=== PATIENT | female | born 1975 | race Caucasian/White ===

== ENCOUNTER 2019-09-28 20:00 | Emergency (ER) | payer MEDICAID, SELFPAY ==
[2019-09-28 20:01] VITALS: BP 123/79; PULSE 96; RESP 20; TEMP 36.7; O2SAT 99; BMI 18.7
[2019-09-28 20:11] VITALS: BP 123/87; PULSE 84; RESP 20; O2SAT 100
--- NOTE | 2019-09-28 20:33 | RAD_ITS ---
STUDY: X-RAY CHEST REASON FOR EXAM: Female, 44 years old. SOB FOR A COUPLE DAYS WITH COUGH TECHNIQUE: Portable chest. COMPARISON: 09/11/2017. FINDINGS: The lungs are clear and expanded. There is no demonstrated pleural abnormality. Normal size heart. Normal mediastinum and nicolle. Normal visualized pulmonary arteries. Normal visualized aortic arch and descending thoracic aorta. Normal visualized thoracic spine. Normal visualized ribs, clavicles, and shoulders. There is no demonstrated abnormality of the visualized soft tissue structures of the upper abdomen. RAD/Chest 1 View (Portable) IMPRESSION: Normal x-ray examination of the chest. Electronically Signed: Jess Mason MD at 22:12 EST Tel , Service support ,
--- NOTE | 2019-09-28 20:34 | EKG12_ITS ---
Test Reason : SOB Blood Pressure : / mmHG Vent. Rate : 063 BPM Atrial Rate : 063 BPM P-R Int : 136 ms QRS Dur : 086 ms QT Int : 402 ms P-R-T Axes : 076 060 067 degrees QTc Int : 411 ms Normal sinus rhythm Normal ECG Confirmed by CHACHO MCKEE, STEVIE ([id number]), story editor DANIELLE MADRIGAL ([id number]) on 10/02/2019 8:52:33 AM Referred By: SERJIO Confirmed By:STEVIE FLOR MD
[2019-09-28] MEDS: hydrOXYzine 50 MG/ML Vial IM (20:57)
[2019-09-28] MEDS: 0.9% Normal Saline 1,000 ML 999 ML IV (20:58)
[2019-09-28 21:18] LABS: Anion Gap 6 (5-15); BUN 9 mg/dL (7-18); BUN/Creat Ratio 11.1 RATIO (10-20); Calcium,Total 9.1 mg/dL (8.5-10.1); Chloride 107 mmol/L (98-107); Creatinine, Serum 0.81 mg/dL (0.55-1.02); EST Glomerular Filtration Rate 81 mL/min (>60); Est Glom Filt Rate - Afr Amer 98 mL/min (>60); Glucose 87 mg/dL (74-106); Potassium 3.6 mmol/L (3.5-5.1); Sodium Level 138 mmol/L (136-145)
[2019-09-28 21:21] LABS: Absolute Lymphocyte Count 2.08 X10^3/uL (0.83-4.51); Absolute Neutrophil Count 3.4 X10^3/uL (2.0-7.7); Basophil# 0.02 X10^3/uL; Basophil% 0.3 % (0-1); Eosinophil# 0.06 X10^3/uL; Hematocrit 39.4 % (37-47); Hemoglobin 13.2 g/dL (12.0-15.0); Lymphocyte # 2.08 X10^3/ul (4.0); Lymphocyte % 34.6 % (19-41); Mean Corp Hgb Conc 33.5 g/dL (32-36); Mean Corpuscular Hgb 28.5 pg (27.0-32.0); Mean Corpuscular Volume 85.1 fL (81-99); Mean Platelet Vol. 11.7 fl (6.2-12.0); Monocyte# 0.42 X10^3/uL; NRBC Flagged by Analyzer 0 % (0-5); Neutrophil # 3.41 X10^3/uL (2.7-7.7); Neutrophil % 56.8 % (47-70); Platelet Count 141 K/mm3 (150-450); RBC Distribution Width CV 12.7 % (11.6-14.6); RBC Distribution Width SD 38.8 fl (35.1-43.9); Red Blood Count 4.63 M/mm3 (4.2-5.4)
[2019-09-28 21:38] LABS: D-Dimer Quantitative (DVT/PE) < 0.27 FEU/ug/m (0.27-0.49)
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
[2019-09-28 23:01] VITALS: BP 105/71; PULSE 62; RESP 13; O2SAT 95
== END 2019-09-28 23:02 | disposition home or self-care (01) ==
LOC: ED 20:41
PROVIDERS: Emergency Provider Emergency Medicine
DX: F41.9 Anxiety disorder, unspecified (principal); R11.2 Nausea with vomiting, unspecified; R07.9 Chest pain, unspecified; R51 Headache; F32.9 Major depressive disorder, single episode, unspecified; Z72.0 Tobacco use; Z79.899 Other long term (current) drug therapy
CPT/HCPCS: 71045; 80048; 84484; 85025; 85379; 93005; 96360; 96361; 96372; 99283; J7030; A4216

== ENCOUNTER 2020-07-05 07:53 | Emergency (ER) | payer MEDICAID, SELFPAY ==
[2020-07-05 07:54] VITALS: BP 122/72; PULSE 77; RESP 17; TEMP 36.6; O2SAT 100; BMI 20.8
--- NOTE | 2020-07-05 08:04 | EKG12_ITS ---
Test Reason : CP Blood Pressure : / mmHG Vent. Rate : 078 BPM Atrial Rate : 078 BPM P-R Int : 134 ms QRS Dur : 082 ms QT Int : 406 ms P-R-T Axes : 076 055 054 degrees QTc Int : 462 ms Normal sinus rhythm Nonspecific ST abnormality Abnormal ECG Confirmed by CHACHO MCKEE, STEVIE ([id number]), managing editor TIERRA SANTOS ([id number]) on 07/07/2020 8:28:04 AM Referred By: Confirmed By:STEVIE FLOR MD
[2020-07-05] MEDS: 0.9% Normal Saline 1,000 ML 1000 ML IV (08:10)
--- NOTE | 2020-07-05 08:10 | RAD_ITS ---
STUDY: X-RAY CHEST REASON FOR EXAM: Female, 45 years old. Pt. States she had too much to drink the other night, now she woke up this morning and vomited, then has had chest pain TECHNIQUE: Single AP portable view of the chest. COMPARISON: Comparison is made with prior study dated 09/28/2019. FINDINGS: EKG electrodes are seen. Hyperinflation. The lungs are clear. There is no demonstrated pleural abnormality. Normal size heart. Normal mediastinum and nicolle. Normal visualized pulmonary arteries. Normal visualized aortic arch and descending thoracic aorta. There is a dextroscoliosis of the thoracic spine. Normal visualized ribs, clavicles, and shoulders. There is no demonstrated abnormality of the visualized soft tissue structures of the upper abdomen. RAD/Chest 1 View (Portable) IMPRESSION: Hyperinflation. Electronically Signed: Ezio Sanchez, at 8:27 EDT , Service support ,
[2020-07-05 08:13] LABS: Absolute Lymphocyte Count 2.18 X10^3/uL (0.83-4.51); Basophil# 0.01 X10^3/uL; Basophil% 0.1 % (0-1); Eosinophil# 0.17 X10^3/uL; Eosinophils% 2.4 % (0-5); Hematocrit 44.3 % (37-47); Hemoglobin 14.6 g/dL (12.0-15.0); Lymphocyte # 2.18 X10^3/ul (4.0); Lymphocyte % 31.3 % (19-41); Mean Corpuscular Hgb 29.4 pg (27.0-32.0); Mean Corpuscular Volume 89.3 fL (81-99); Mean Platelet Vol. 11.4 fl (6.2-12.0); Monocyte# 0.59 X10^3/uL; Monocyte% 8.5 % (0-10); NRBC Flagged by Analyzer 0 % (0-5); Neutrophil % 57.4 % (47-70); POSITIVE MORPHOLOGY YES; Platelet Count 164 K/mm3 (150-450); RBC Distribution Width CV 12.4 % (11.6-14.6); RBC Distribution Width SD 40.6 fl (35.1-43.9); Red Blood Count 4.96 M/mm3 (4.2-5.4)
[2020-07-05 08:20] LABS: Differential Indicated SCAN CRITERIA MET
[2020-07-05 08:32] LABS: AST(SGOT) 26 U/L (15-37); Alanine Aminotransfer ALT/SGPT 21 U/L (13-56); Albumin, Serum 4.2 g/dL (3.2-5.0); Alkaline Phosphatase 77 U/L (45-117); Anion Gap 3 (5-15); BUN 9 mg/dL (7-18); BUN/Creat Ratio 10.2 RATIO (10-20); Calcium,Total 9.2 mg/dL (8.5-10.1); Chloride 106 mmol/L (98-107); Creatinine, Serum 0.89 mg/dL (0.55-1.02); EST Glomerular Filtration Rate 73 mL/min (>60); Est Glom Filt Rate - Afr Amer 88 mL/min (>60); Estimated Creatinine Clearance 72.17 ml/min; Globulin 4.2 g/dL (2.2-4.2); Glucose 83 mg/dL (74-106); Lipase 96 U/L (73-393); Potassium 3.6 mmol/L (3.5-5.1); Protein, Total 8.4 g/dL (6.4-8.2); Sodium Level 137 mmol/L (136-145)
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
[2020-07-05 08:42] LABS: Platelet Estimate ADEQUATE (ADEQ); Red Cell Morphology NORM C+C NORMAL (NORM C&C)
[2020-07-05] MEDS: LORazepam 2 MG/ML Syringe 1 MG IV (08:56)
[2020-07-05 08:57] LABS: Alcohol, Blood (Medical)-Serum < 3.0 mg/dL
[2020-07-05 09:12] VITALS: BP 94/57; PULSE 58; RESP 16; O2SAT 98
== END 2020-07-05 09:28 | disposition home or self-care (01) ==
PROVIDERS: Emergency Provider Emergency Medicine; PCP Family Medicine
DX: F41.1 Generalized anxiety disorder (principal); F43.0 Acute stress reaction; R07.89 Other chest pain; R11.10 Vomiting, unspecified; F17.200 Nicotine dependence, unspecified, uncomplicated
CPT/HCPCS: 71045; 80053; 80320; 83690; 84484; 85025; 93005; 96361; 96374; 99285; J7030; A4216; G0480

== ENCOUNTER → 2020-07-29 13:34 | Outpatient (CLI) | payer MEDICAID, SELFPAY ==
[2020-07-21 09:22] VITALS: BMI 20.8
[2020-07-29 13:45] VITALS: PULSE 58; PULSE 64; PULSE 82; PULSE 83; PULSE 86; PULSE 87; PULSE 89; PULSE 96; O2SAT 97; O2SAT 98
--- NOTE | 2020-07-30 10:39 | PCM.PSN.6M ---
PSN 6 Minute Walk Test - 6 Minute Walk Test 6 Minute Walk Test: 6 Minute Walk Test PSN:6-Minute Walk Test Start: 07/29/20 13:50 Freq: Status: Active Protocol: [id number] Document 07/29/20 13:45 (Rec: 07/29/20 13:53 [id number]) 6 Minute Walk Test Date Performed 07/29/20 Time Performed 13:45 Height 5 ft 6 in Weight: 129 lb Weight in Pounds 129.[address]: Daren Kelley FIO2 (% Oxygen) 21 Assistive device used: None Pre-test Oxygen Delivery Method Room Air Pulse Ox (%) 98 Pulse Rate (60-100 beats/min) 58 L Dyspnea Gladis Scale (0-10) 0 Exertion Gladis Scale (6-20) 6 1st minute Oxygen Delivery Method Room Air Pulse Ox (%) 97 Pulse Rate (60-100 beats/min) 96 2nd minute Oxygen Delivery Method Room Air Pulse Ox (%) 97 Pulse Rate (60-100 beats/min) 82 3rd minute Oxygen Delivery Method Room Air Pulse Ox (%) 98 Pulse Rate (60-100 beats/min) 83 4th minute Oxygen Delivery Method Room Air Pulse Ox (%) 97 Pulse Rate (60-100 beats/min) 86 5th minute Oxygen Delivery Method Room Air Pulse Ox (%) 98 Pulse Rate (60-100 beats/min) 89 6th minute Oxygen Delivery Method Room Air Pulse Ox (%) 98 Pulse Rate (60-100 beats/min) 87 Post-test Oxygen Delivery Method Room Air Pulse Ox (%) 98 Pulse Rate (60-100 beats/min) 64 Dyspnea Gladis Scale (0-10) 3 Exertion Gladis Scale (6-20) 8 Full Laps Walked 24 Partial Lap, Number of Tiles Walked 0 Total Distance Walked (ft) 1416 - Interpretation Interpretation: The patient ambulated 1416 feet over the course of 6 minutes beginning on room air without assistive devices or breaks. Pretesting oxygen saturation was noted to be 98% on room air. With ambulation, the denny oxygen saturation was 97%. There was no significant exertional oxygen desaturation. - Recommendations Recommendations: There is no indication for the use of supplemental oxygen at this time.
== END ==
PROVIDERS: PCP Family Medicine; Referring Provider Internal Medicine Critical Care Medicine; Visit Provider Internal Medicine Critical Care Medicine
DX: R06.02 Shortness of breath (principal)
CPT/HCPCS: 94618

== ENCOUNTER 2020-09-30 14:51 | Emergency (ER) | payer MEDICAID, SELFPAY ==
[2020-07-21 09:22] VITALS: BMI 20.8
[2020-09-30 14:52] VITALS: BP 136/84; PULSE 89; RESP 16; TEMP 36.2; O2SAT 99; BMI 20.9
--- NOTE | 2020-09-30 15:37 | ED.VIS.GEN ---
History of Present Illness Chief Complaint: Dental Informant: Patient Onset: Days Current Severity: Mild Maximum Severity: Moderate Narrative: Patient presents secondary to dental pain. Patient states she broke her tooth off about a year ago and since that time has had intermittent infections. About 3 days ago she developed increased pain and now has swelling along the right gumline. Slight chills but no fever. She does have pain into her right ear. - Past Medical History (1) ADHD Status: Chronic (2) COPD (chronic obstructive pulmonary disease) Status: Chronic (3) Bipolar 1 disorder Status: Chronic (4) PTSD (post-traumatic stress disorder) Status: Chronic Past Medical History - Allergies and Home Meds Allergies/Adverse Reactions: Allergies No Known Allergies Allergy (Verified 07/21/20 09:18) Prior records reviewed: Yes Surgical History: noncontributory, tonsillectomy, - - Right shoulder surgery Smoking Status: Heavy Smoker (>10/day) Drugs: Marijuana - Family History Maternal Family History: Family History (Last Updated 07/21/20 @ 09:27 by Kitty Son) Other Breast cancer Pancreatic cancer Family History: Reports: No pertinent history Review of Systems General: Reports: Chills. Denies: Fever Eyes: Denies: Visual changes - bilaterally ENT: Reports: Right ear pain, - - Right-sided dental pain with facial swelling Cardiovascular: Denies: Chest pain Respiratory: Denies: Dyspnea, Cough Gastrointestinal: Denies: Abdominal pain, Nausea, Vomiting, Diarrhea Musculoskeletal: Denies: Extremity Pain Neurological: Denies: Headache Hematologic: Denies: Easy bruising, Easy bleeding Allergy: Denies: Uticaria Physical Exam Vital Signs/Narrative: Vital Signs Temp Pulse Resp BP Pulse Ox 09/30/20 14:52 97.2 F L 89 16 136/84 H 99 Inital Vital Signs reviewed: Yes General: Well nourished, Well developed Head: Normocephalic ENT: Moist mucous membranes, TM's clear, - - Right first molar is decayed and broken at the gumline. Mild surrounding gum edema. No evidence of Genesis's angina. Posterior pharynx examination is unremarkable. Slight edema noted to the right mandibular region of the face. No overlying erythema. Neck: Supple Cardiovascular: Regular rate, Regular rhythm Respiratory: No distress, CTA bilaterally Abdomen: Soft, Nontender Neurological: Alert, Oriented x3 Psychological: Normal affect Diagnostic/Tx/Re-eval - Medical Decision Making Patient be treated with Pen-Vee K and naproxen. Prescriptions were sent to the pharmacy with her along with a dose of Diflucan as she states she frequently gets yeast infections. Dental referral list was provided. ED Disposition - Plan for ED Patient: Disposition: Home or Assisted Living Diagnosis: Dental abscess Instructions: Dental Abscess Prescriptions: Fluconazole [Diflucan] 150 mg PO X1 #1 tab Transmission Status: Pending to [facility] Naproxen [Naprosyn] 500 mg PO BID PRN #14 tab PRN Reason: Pain Score 4-10 Transmission Status: Pending to [facility] Penicillin V Potassium 500 mg PO 4X/DAY #40 tab Transmission Status: Pending to [facility] Additional Instructions: Dental referral list provided.
[2020-09-30] MEDS: Penicillin Vk 250 MG Tablet 500 MG PO (15:45)
== END 2020-09-30 15:47 | disposition home or self-care (01) ==
PROVIDERS: Emergency Provider Emergency Medicine; PCP Family Medicine
DX: K04.7 Periapical abscess without sinus (principal); J44.9 Chronic obstructive pulmonary disease, unspecified; F31.9 Bipolar disorder, unspecified; F90.9 Attention-deficit hyperactivity disorder, unspecified type; F43.12 Post-traumatic stress disorder, chronic; F17.200 Nicotine dependence, unspecified, uncomplicated
CPT/HCPCS: 99283

== ENCOUNTER 2020-11-11 20:33 | Emergency (ER) | payer MEDICAID, SELFPAY ==
[2020-11-11 20:34] VITALS: BP 149/90; PULSE 97; RESP 18; TEMP 36.7; O2SAT 98; BMI 21.3
--- NOTE | 2020-11-11 20:47 | ED.DCSUM_ITS ---
- ER Visit Summary Date of Service: 11/11/20 Chief Complaint: Tooth ache, facial swelling History of Present Illness: The patient is a 45 F who presents with a toothache and facial swelling. This is been ongoing for the past 3 days. She has seen her dentist and she is due for an extraction on November 16. She woke up today and had more facial swelling. She went to [facility]. They switched her antibiotics to amoxicillin and gave her tramadol for home. She woke up again after a nap today and felt that her face was more swollen. Denies any trouble swallowing. Denies fevers. She believe that the tramadol was not working to help with her pain. Is a smoker. Physical Examination: Vital signs reviewed. HEENT exam reveals mandibular swelling on the right-hand side. No fluctuance. There is no erythema. There is no gingival abscess. She has tenderness to percussion at numbers 30 and 31. She is handling her secretions normally. Her neck is supple without lymphadenopathy. Test Results: None performed Emergency Department Course and Treatment: She has widespread dental decay and a likely dental abscess. See no gingival abscess. There is no facial abscess. There is nothing that needs to be drained at this time. I will give her a dose of Toradol here. She will continue her antibiotics and will call her dentist in the morning. Treatment Plan: [] Disposition: Discharge Impression: Dentalgia, facial swelling This note was generated with [employer] dictation software. It may contain incorrect words, spelling, and punctuation that were not noted in review of the chart prior to signing ED Disposition - Plan for ED Patient: Disposition: Home or Assisted Living Instructions: ED Dental Pain Referrals: Raoul Fry MD [Primary Care Provider] -
[2020-11-11] MEDS: Ketorolac 60 MG/2 ML Vial IM (20:52)
[2020-11-11 21:24] VITALS: BP 131/71; PULSE 78; RESP 18; O2SAT 99
== END 2020-11-11 21:25 | disposition home or self-care (01) ==
LOC: ED 21:04
PROVIDERS: Emergency Provider Emergency Medicine; PCP Family Medicine
DX: K08.89 Other specified disorders of teeth and supporting structures (principal); R22.0 Localized swelling, mass and lump, head; F17.200 Nicotine dependence, unspecified, uncomplicated
CPT/HCPCS: 96372; 99282

== ENCOUNTER 2020-11-13 09:31 | Emergency (ER) | payer MEDICAID, SELFPAY ==
[2020-11-13 09:33] VITALS: BP 131/89; PULSE 106; RESP 22; TEMP 36.3; O2SAT 100; BMI 21.3
--- NOTE | 2020-11-13 10:10 | CT_ITS ---
STUDY: CT SOFT TISSUE NECK WITH CONTRAST REASON FOR EXAM: Female, 45 years old. Right facial swelling and jaw pain, on antibiotics currently, elevated WBC, wide spread dental decay. Hx COPD. RADIATION DOSAGE (If Supplied By Facility): CTDIvol = ( 10.32 ) mGy, DLP = ( 304.22 ) mGycm TECHNIQUE: The patient was scanned in a multi-detector CT scanner. High resolution transaxial imaging was performed following intravenous administration of IV 100mL Isovue-300. Sagittal and coronal images were reconstructed. Individualized dose optimization techniques were used for this CT. COMPARISON: None. FINDINGS: Normal bilateral parotid glands. Enlargement of the musculature in the right maxillary area including an mass or muscle with stranding of the surrounding fat into the subcutaneous fat consistent with inflammation. No loculated fluid collection to suggest abscess. Normal bilateral parapharyngeal spaces. Normal bilateral carotid spaces. Normal bilateral sublingual and submandibular glands and spaces. Normal visualized nasopharynx. Normal retropharyngeal space. Normal perivertebral space. Normal visualized bilateral faucial tonsils. The visualized tongue, tongue base and oropharynx are normal. The visualized cervical lymph nodes (levels I-) are within normal size limits, and maintain normal morphology. There is no demonstrated solid or cystic mass lesion. There is no abnormal contrast enhancement. Normal epiglottis, bilateral vallecula and hypopharynx. The pre-epiglottic and paraglottic adipose spaces are normal. Normal visualized bilateral piriform sinuses, aryepiglottic folds, vocal cords, and arytenoid-cricoid articulations. Normal subglottic trachea. Normal bilateral lobes of the thyroid gland. Normal visualized pulmonary apices. Normal visualized paranasal sinuses. Normal visualized cervical spine. CT/Soft Tissue Neck WITH Contrast IMPRESSION: Right maxillary inflammation with soft tissue swelling but no abscess. Electronically Signed: Young Houston MD at 11:45 EST Tel , Service support ,
--- NOTE | 2020-11-13 10:15 | ED.VISSUMM ---
- ER Visit Summary Date of Service: 11/13/20 Chief Complaint: Dental abscess History of Present Illness: The patient is a 45 F who presents with dental abscess that has been getting worse over the past few days. Patient was seen here 2 days ago. Patient was also seen at [facility] that day and was started on amoxicillin. Patient states the pain and swelling is getting progressively worse. Patient states that today she is having difficulty swallowing. Patient denies any difficulty breathing. Patient denies any fevers or chills. Patient denies any hot or cold sensitivity. Patient states she has seen her dentist for this and she is scheduled for an extraction in 3 days. Physical Examination: Vital signs are stable. Patient is afebrile. Patient is in no acute distress. Oral mucosa is pink and moist. Oropharynx is clear. Airway is patent. There is tenderness to percussion over the right lower molars. There is no gingival edema. There is no gingival abscess. There is edema, erythema, and tenderness over the right lower jaw. It is starting to spread into the submandibular area and sublingual area. There is no trismus. Neck is supple. Trachea is midline. There is no JVD. Heart was regular rate and rhythm. Lungs are clear and equal bilaterally. Cranial nerves II through XII are intact. There are no focal motor or sensory deficits. Test Results: CBC shows a mild leukocytosis of 12.3. Comprehensive metabolic profile was essentially within normal limits. CT scan of the soft tissue neck was obtained. There is soft tissue swelling. There is no abscess. There is no evidence of Huber's angina. The sublingual submandibular spaces are normal. This was interpreted by the radiologist and reviewed by myself. Emergency Department Course and Treatment: Patient was given a dose of morphine and Unasyn here. Patient was feeling somewhat better on reevaluation. Patient was given a prescription for Augmentin. Patient was instructed to stop the amoxicillin. Patient was instructed to follow-up with her dentist as scheduled. Patient understood and was agreeable with the plan. All questions were answered. Disposition: Discharge home Impression: 1. Dental abscess This note was generated with [employer] software. It may contain incorrect words, spelling, and punctuation that were not noted in review of the chart prior to signing ED Disposition - Plan for ED Patient: Disposition: Home or Assisted Living Diagnosis: Dental abscess Instructions: ED Dental Abscess Prescriptions: Amox/Clavulanate Tablet [Augmentin Tablet] 875 mg PO Q12H #20 tab Transmission Status: Pending to [facility] Referrals: Raoul Fry MD [Primary Care Provider] - 3-5 Days
[2020-11-13] MEDS: 0.9% Normal Saline 1,000 ML 1000 ML IV (10:30)
[2020-11-13] MEDS: Morphine 4 MG/ML Syringe IV (10:30)
[2020-11-13 10:51] LABS: Absolute Lymphocyte Count 0.86 X10^3/uL (0.83-4.51); Absolute Neutrophil Count 10.5 X10^3/uL (2.0-7.7); Basophil# 0.02 X10^3/uL; Basophil% 0.2 % (0-1); Eosinophil# 0.04 X10^3/uL; Eosinophils% 0.3 % (0-5); Hematocrit 39.2 % (37-47); Hemoglobin 12.9 g/dL (12.0-15.0); Lymphocyte # 0.86 X10^3/ul (4.0); Mean Corp Hgb Conc 32.9 g/dL (32-36); Mean Corpuscular Hgb 29.3 pg (27.0-32.0); Mean Corpuscular Volume 88.9 fL (81-99); Mean Platelet Vol. 12.2 fl (6.2-12.0); Monocyte# 0.87 X10^3/uL; Monocyte% 7.1 % (0-10); NRBC Flagged by Analyzer 0 % (0-5); Neutrophil # 10.45 X10^3/uL (2.7-7.7); Neutrophil % 84.8 % (47-70); Platelet Count 142 K/mm3 (150-450); RBC Distribution Width CV 12.6 % (11.6-14.6); RBC Distribution Width SD 41.2 fl (35.1-43.9); Red Blood Count 4.41 M/mm3 (4.2-5.4); White Blood Count 12.3 K/mm3 (4.4-11.0)
[2020-11-13 11:01] LABS: ALB/GLOB Ratio 0.9 RATIO (0.9-2.4); AST(SGOT) 30 U/L (15-37); Alanine Aminotransfer ALT/SGPT 31 U/L (13-56); Albumin, Serum 3.8 g/dL (3.2-5.0); Alkaline Phosphatase 73 U/L (45-117); Anion Gap 4 (5-15); BUN 7 mg/dL (7-18); BUN/Creat Ratio 9.3 RATIO (10-20); Calcium,Total 9.5 mg/dL (8.5-10.1); Chloride 101 mmol/L (98-107); Creatinine, Serum 0.75 mg/dL (0.55-1.02); EST Glomerular Filtration Rate 88 mL/min (>60); Est Glom Filt Rate - Afr Amer 107 mL/min (>60); Estimated Creatinine Clearance 86.81 ml/min; Globulin 4.1 g/dL (2.2-4.2); Glucose 90 mg/dL (74-106); Potassium 3.7 mmol/L (3.5-5.1); Protein, Total 7.9 g/dL (6.4-8.2); Sodium Level 132 mmol/L (136-145)
[2020-11-13 12:16] VITALS: BP 141/76; PULSE 82; RESP 16; O2SAT 99
--- NOTE | 2020-11-13 12:16 | ED.RN ---
IV DC'ED, CATHETER INTACT, SMALL GAUZE DRESSING PLACED. DISCHARGE INSTRUCTIONS GIVEN TO AND REVIEWED WITH PATIENT, PATIENT DENIES QUESTIONS OR CONCERNS AND VOICES UNDERSTANDING OF DISCHARGE INSTRUCTIONS. PT AMBULATES OUT OF ROOM WITHOUT DIFFICULTY.
== END 2020-11-13 12:17 | disposition home or self-care (01) ==
PROVIDERS: Emergency Provider Emergency Medicine; PCP Family Medicine
DX: K04.7 Periapical abscess without sinus (principal); J44.9 Chronic obstructive pulmonary disease, unspecified; Z72.0 Tobacco use
CPT/HCPCS: 70491; 80053; 85025; 96365; 96366; 96375; 99283; Q9967; J0295

== ENCOUNTER 2021-10-05 21:45 | Emergency (ER) | payer MEDICAID, SELFPAY ==
[2021-10-05 21:45] VITALS: BP 137/83; PULSE 79; RESP 18; TEMP 36.4; O2SAT 100; BMI 19.3
--- NOTE | 2021-10-05 22:00 | EKG12_ITS ---
Test Reason : CP Blood Pressure : / mmHG Vent. Rate : 067 BPM Atrial Rate : 067 BPM P-R Int : 134 ms QRS Dur : 090 ms QT Int : 436 ms P-R-T Axes : 074 077 082 degrees QTc Int : 460 ms Normal sinus rhythm Normal ECG Confirmed by CHACHO MCKEE, STEVIE ([id number]), photo editor CHRISTIE CHEATHAM ([id number]) on 10/11/2021 10:30:57 AM Referred By: MATHIEU Confirmed By:STEVIE FLOR MD
--- NOTE | 2021-10-05 22:08 | RAD_ITS ---
EXAM: XR CHEST, 1 VIEW CLINICAL INDICATION: trauma TECHNIQUE: Frontal view of the chest. This report was created using [employer] report generation technology. COMPARISON: 07/05/2020 exam. FINDINGS: LUNGS AND PLEURAL SPACES: Diffuse emphysema, centrilobular. No pneumothorax. No effusion. HEART: Unremarkable. Cardiac silhouette not enlarged. MEDIASTINUM: Central airways and mediastinal contour are unremarkable. BONES/JOINTS: No suspicious lytic or sclerotic lesions of bone. SOFT TISSUES: Unremarkable. RAD/Chest 1 View (Portable) IMPRESSION: No acute disease. Electronically Signed: Sandoval Doss MD at 22:26 EST Tel , Service support ,
--- NOTE | 2021-10-05 22:48 | EDS_ITS ---
HPI History of Present Illness Chief Complaint: Chest Pain Narrative Narrative: Patient is a 46-year-old female who states that she has a past medical history of broken heart syndrome. 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 She states in doing so he struck her chest wall and she also had to twist and try to throw him into a chair. She states since that time she has had increasing chest pain and is worried because of her history of broken heart syndrome. She also is concerned that she may have broken a rib and secondary to this presents for evaluation. [facility] Medical History Bipolar 1 disorder PTSD (post-traumatic stress disorder) Home Medications estradiol 1 ea TD [facility] 04/01/15 [History Last Taken 07/04/20] clonazepam 0.5 mg tablet 0.5 mg PO BID 07/21/20 [History Last Taken Unknown] olanzapine 5 mg tablet 10 mg PO QHS 07/21/20 [History Last Taken Unknown] clonazepam 1 mg PO QHS 09/30/20 [History Last Taken Unknown] dextroamphetamine-amphetamine 20 mg PO TID 09/30/20 [History Last Taken Unknown] fluconazole 150 mg PO X1 #1 tab 09/30/20 [Rx Last Taken Unknown] naproxen 500 mg PO BID PRN #14 tab 09/30/20 [Rx Last Taken Unknown] penicillin V potassium 500 mg PO 4X/DAY #40 tab 09/30/20 [Rx Last Taken Unknown] amoxicillin-pot clavulanate 875 mg PO Q12H #20 tab 11/13/20 [Rx Last Taken Unknown] methocarbamol 1,000 mg PO Q6H PRN 7 Days #56 tab 10/05/21 [Rx Last Taken Unknown] oxycodone-acetaminophen [Percocet] 1 tab PO Q6H PRN 3 Days #12 tab 10/05/21 [Rx Last Taken Unknown] Allergy/AdvReac Type Severity Reaction Status Date / Time No Known Allergies Allergy Verified 10/05/21 21:48 Family History (Updated 07/21/20 @ 09:27 by Kitty Son) Other Breast cancer Pancreatic cancer Surgical History (Updated 09/30/20 @ 15:[address] Danni Amaro MD) s/p ankle surgery s/p cyst removal S/P hernia repair S/P hysterectomy S/P laparoscopic surgery s/p right shoulder surgery S/P tonsillectomy S/P wisdom tooth extraction Social History (Updated 07/21/20 @ 09:[address] Daren Kelley, DO) Smoking Status: Current every day smoker substance use type: marijuana ROS ROS ED Constitutional Constitutional ED: Denies chills or fever(s) ENT ENT ED: Denies sore throat Cardiovascular Cardiovascular: Reports chest pain Respiratory/Chest Respiratory/Chest: Denies cough or dyspnea Gastrointestinal Gastrointestinal: Denies abdominal pain, diarrhea, nausea or vomiting Genitourinary Genitourinary ED: Denies dysuria Musculoskeletal Musculoskeletal: Denies myalgias Integumentary Denies Abrasions or rash Neurologic Neurologic: Denies headache(s) Hematologic/Lymphatic Hematologic/Lymphatic: Denies easy bleeding or easy bruising EXAM Physical Exam Const Vital Signs: 10/05/21 21:45 Temperature 97.6 F L Temperature Source Temporal Pulse Rate 79 Respiratory Rate 18 Blood Pressure 137/83 H Blood Pressure Mean 101 Pulse Ox 100 Oxygen Delivery Method Room Air Positive well nourished and well developed General Appearance ED: well developed HEENT Reports moist mucous membranes Eyes PERRL and EOMs intact bilaterally Neck supple Chest Wall Chest Narrative: Patient has reproducible anterior chest wall pain with palpation but no obvious bony deformity or crepitance Resp normal respiratory effort and clear to auscultation bilaterally Cardio regular rate and regular rhythm Rate: other Other Details: Radial pulses are plus 2 out of 4 bilaterally are equal and symmetric GI normal to inspection, nondistended, normoactive bowel sounds, non-tender, non- distended and no masses Auscultation: normoactive bowel sounds Palpation: soft Extremity normal to inspection Extremity Narrative: No asymmetric edema no pitting edema negative Homans' sign bilaterally Neuro oriented x3 and CN's II-XII intact bilaterally Sensorium / Orientation: alert Motor Exam: strength 5/5 throughout Psych Psych Narrative: Patient has a flat affect Skin no rashes or lesions noted Skin Narrative: No abrasions or ecchymosis noted MDM MDM MDM Narrative Medical decision making narrative: Patient presented to the ER with stable vitals. Her report of chest pain came after a mechanical injury indicating that this is chest wall pain/rib contusion. Therefore I felt no need for work-up other than EKG and chest x-ray. EKG showed normal sinus rhythm without changes to suggest pericarditis or [place] arteritis. Chest x-ray revealed no acute pneumothorax or rib fracture or pneumonia. Therefore at this time as the symptoms and history and physical exam all point to chest wall contusion and intercostal strain as a cause of her symptoms there is no need for further work- up and patient can be discharged home Radiography Diagnostic Testing: Clinical Impression(s) from Imaging Studies Chest X-Ray 10/05/21 22:08 IMPRESSION: No acute disease. Electronically Signed: Sandoval Doss MD at 22:26 EST Tel , Service support , Discharge Plan Triage Chief Complaint: Chest Pain ED Provider: Sandoval Rouse Dx/Rx/DC Orders Clinical Impression: Acute chest wall pain Instructions: ED Chest Wall Contusion, ED Strain Chest Wall Prescriptions: New oxycodone-acetaminophen [Percocet] 5-325 mg tablet 1 tab PO Q6H PRN (Reason: pain) 3 Days Qty: 12 RF: 0 methocarbamol 500 mg tablet 1,000 mg PO Q6H PRN (Reason: Muscle pain/spasm) 7 Days Qty: 56 RF: 0 No Action clonazepam [Klonopin] 0.5 mg tablet 0.5 mg PO BID RF: 0 olanzapine 5 mg tablet 10 mg PO QHS RF: 0 estradiol 1 EACH patch semiweekly 1 ea TD [facility] RF: 0 clonazepam 1 MG tablet 1 mg PO QHS RF: 0 dextroamphetamine-amphetamine 20 MG tablet 20 mg PO TID RF: 0 naproxen 500 MG tablet 500 mg PO BID PRN (Reason: Pain Score 4-10) Qty: 14 RF: 0 penicillin V potassium 500 MG tablet 500 mg PO 4X/DAY Qty: 40 RF: 0 fluconazole 150 MG tablet 150 mg PO X1 Qty: 1 RF: 0 amoxicillin-pot clavulanate 875 MG tablet 875 mg PO Q12H Qty: 20 RF: 0 Primary Care Provider: Raoul Fry Referrals: Raoul Fry MD [Primary Care Provider] - Disposition Disposition: Home, Self Care
[2021-10-05 23:00] VITALS: RESP 16
== END 2021-10-05 23:20 | disposition home or self-care (01) ==
PROVIDERS: Emergency Provider Emergency Medicine; PCP Family Medicine
DX: S20.219A Contusion of unspecified front wall of thorax, initial encounter (principal); R07.89 Other chest pain; F43.10 Post-traumatic stress disorder, unspecified; F31.9 Bipolar disorder, unspecified; Z79.899 Other long term (current) drug therapy; F17.200 Nicotine dependence, unspecified, uncomplicated; W50.0XXA Accidental hit or strike by another person, initial encounter; Y93.F9 Activity, other caregiving; Y92.9 Unspecified place or not applicable; Y99.0 Civilian activity done for income or pay
CPT/HCPCS: 71045; 93005; 99282

== ENCOUNTER 2022-06-05 21:10 | Emergency (ER) | payer MEDICAID, SELFPAY ==
[2022-06-05 21:11] VITALS: BP 144/78; PULSE 85; RESP 14; TEMP 36.9; O2SAT 98; BMI 20.9
--- NOTE | 2022-06-05 21:29 | EKG12_ITS ---
Test Reason : CP Blood Pressure : / mmHG Vent. Rate : 069 BPM Atrial Rate : 069 BPM P-R Int : 138 ms QRS Dur : 086 ms QT Int : 396 ms P-R-T Axes : 064 054 060 degrees QTc Int : 424 ms Normal sinus rhythm Low voltage QRS (Limb Leads) Confirmed by BRYSON MCKEE, ANGELICA ([id number]), film editor supervisor TIERRA SANTOS ([id number]) on 06/06/2022 8:23:02 AM Referred By: Confirmed By:ANGELICA MASSEY MD
--- NOTE | 2022-06-05 21:30 | EDS_ITS ---
HPI History of Present Illness Chief Complaint: Chest Pain Narrative Narrative: Patient presents because she has had chest pain for years. She has chest tightness. She has past medical history of bipolar disorder, PTSD, COPD, and ADHD. She is a smoker. She went and saw her primary care physician today, and he performed an EKG. He told her that she may have had a heart attack since her last EKG a few months ago. He states that they were EKG changes in the front. She states that she relates her chest pain and shortness of breath to anxiety and stress regarding her brother's murder. She denies any leg swelling or exacerbating or alleviating symptoms, but states she got scared because of the chest pain that she has been having for months to years. She states she had a chest x-ray performed today that showed she might have pneumonia. This was done as an outpatient. She states her primary care physician told her she needed to follow-up with a precision lens generator, and she went to make an appointment and they told her that it would not be until October. She also states that in the past she has had echocardiogram performed which showed that she had regurgitation but she does not know of which valve. She states that she does not have a precision lens generator currently. She presents mainly because of the EKG changes and that she was told that she had a heart attack. [facility] Medical History ADHD Bipolar 1 disorder COPD (chronic obstructive pulmonary disease) PTSD (post-traumatic stress disorder) Home Medications estradiol 0.025 mg/24 hr semiweekly transdermal patch 1 ea TD [facility] 04/01/15 [History Last Taken 07/04/20] clonazepam 0.5 mg tablet (Klonopin) 0.5 mg PO BID 07/21/20 [History Last Taken Unknown] olanzapine 5 mg tablet (Zyprexa) 20 mg PO QHS 07/21/20 [History Last Taken Unknown] clonazepam 1 mg tablet 1 mg PO QHS 09/30/20 [History Last Taken Unknown] dextroamphetamine-amphetamine 20 mg tablet (Adderall) 20 mg PO TID 09/30/20 [History Last Taken Unknown] Allergy/AdvReac Type Severity Reaction Status Date / Time No Known Allergies Allergy Verified 06/05/22 21:15 Family History Other Breast cancer Pancreatic cancer Surgical History s/p ankle surgery s/p cyst removal S/P hernia repair S/P hysterectomy S/P laparoscopic surgery s/p right shoulder surgery S/P tonsillectomy S/P wisdom tooth extraction Social History Smoking Status: Current every day smoker tobacco type: cigarettes substance use type: marijuana ROS ROS ED ROS Narrative Constitutional: No fever, no chills. HEENT: No sore throat. No neck pain. No loss of vision. No rhinorrhea. Cardiovascular: Positive chronic chest pain. No palpitations. No pedal edema. Respiratory: Occasional cough, intermittent shortness of breath. Abdominal: No abdominal pain. No nausea. No vomiting. Genitourinary: No dysuria. No hematuria. Musculoskeletal: No myalgias. No arthralgias. Neurologic: No headaches. No dizziness. No lightheadedness. Skin: No rash. No change in color. Psychiatric: No depression. No anxiety. EXAM Physical Exam Narrative Exam Narrative: Afebrile. Vital signs noted. HEENT: Normocephalic. Atraumatic. PERRL, EOMI. Neck soft and supple. No point tenderness or step off. Cardiovascular: Regular rate and rhythm. No murmurs, rubs, or gallops appreciated. Respiratory: No tachypnea. Lungs clear to auscultation bilaterally. Gastrointestinal: Abdomen soft, nontender, with normoactive bowel sounds. No rebound or guarding. Neurological: Awake. Alert. Nonfocal, nonlateralizing. Skin: No rash. Normal color. No pallor. Musculoskeletal: No pedal edema. Full range of motion extremities. Const Vital Signs: 06/05/22 21:11 06/05/22 21:21 06/05/22 21:35 Temperature 98.4 F Temperature Source Temporal Pulse Rate 85 Respiratory Rate 14 Respiratory Effort Normal Non-Labored Blood Pressure 144/78 H Blood Pressure Mean 100 Pulse Ox 98 99 Oxygen Delivery Method Room Air Room Air Heart Score History: Slightly/Non-Suspicious ECG: Normal Age: >45 - <65 years Risk Factors: 1 or 2 Risk Factors Score: 2 MDM MDM MDM Narrative Medical decision making narrative: Chest pain work-up was pursued. EKG was obtained and interpreted by myself demonstrates normal sinus rhythm at 69 bpm without ectopy or acute ST changes. No STEMI. CBC is grossly normal with a normal white count of 5.3, normal hemoglobin of 12.0 with hematocrit 37.0. Platelet count slightly low at 132 which is chronic. BMP is grossly normal. Initial high-sensitivity troponin 4. Chest x-ray interpreted by myself shows no acute process. She did show me the radiology read of her chest x-ray that was performed today, and it could have been a summation of shadows in the right upper lobe that was a possible pneumo shahram. However, she is shows no clinical signs of pneumonia, no fever or cough. I do not feel antibiotics are indicated. She states that she was worried because she has this history of regurgitation and states her shortness of breath may be secondary to that, but she has no evidence of pedal edema and her pulse ox is 99% on room air without evidence of hypoxia. Patient was reassured. At this point in time, her 2-hour troponin is still pending. She will be signed out to the oncoming physician, Dr. Sandoval Rouse, to check the delta troponin and as long as it is negative, discharge her to follow-up with her primary care physician. Disposition is pending delta troponin. She is in stable condition. Lab Data Attestation: I reviewed the patient's lab results. Labs: Laboratory Results - last 24 hr 06/05/22 06/05/22 21:40 21:40 WBC 5.3 RBC 4.10 L Hgb 12.0 Hct 37.0 MCV 90.2 MCH 29.3 MCHC 32.4 RDW Std Deviation 42.6 RDW Coeff of Hillary 12.9 Plt Count 132 L MPV 11.7 Immature Gran % (Auto) 0.400 Neut % (Auto) 51.7 Lymph % (Auto) 37.2 Clinch % (Auto) 8.6 Eos % (Auto) 1.7 Baso % (Auto) 0.4 Absolute Neuts (auto) 2.8 Absolute Lymphs (auto) 1.98 Nucleated RBC % 0 Sodium 138 Potassium 3.6 Chloride 107 Carbon Dioxide 27.0 Anion Gap 4 L BUN 9 Creatinine 0.88 Estim Creat Clear Calc 71.99 Est GFR (MDRD) Af Amer 88 Est GFR (MDRD) Non-Af 73 BUN/Creatinine Ratio 10.3 Glucose 97 Calcium 8.8 Troponin I High Sens 4 Radiography Diagnostic Testing: Clinical Impression(s) from Imaging Studies Chest X-Ray 06/05/22 21:50 IMPRESSION: No acute cardiopulmonary disease. Electronically Signed: Keyur Vale MD at 22:22 EDT , Discharge Plan Triage Chief Complaint: Chest Pain ED Provider: Fredis Lazcano Dx/Rx/DC Orders Clinical Impression: Chest pain, Shortness of breath, Thrombocytopenia Instructions: Thrombocytopenia, ED Chest Pain, Uncertain Cause, ED Dyspnea Prescriptions: No Action clonazepam [Klonopin] 0.5 mg tablet 0.5 mg PO BID olanzapine [Zyprexa] 5 mg tablet 20 mg PO QHS estradiol 1 EACH patch semiweekly 1 ea TD [facility] Label Comments: APPLY PACTCH 2X WEEK. clonazepam 1 MG tablet 1 mg PO QHS dextroamphetamine-amphetamine [Adderall] 20 MG tablet 20 mg PO TID Primary Care Provider: Steve Medina Referrals: Raoul Fry MD [Non-Staff] - 3-5 Days if not improving Disposition Disposition: Home, Self Care
[2022-06-05 21:35] VITALS: O2SAT 99
[2022-06-05] MEDS: Aspirin 81 MG TAB.CHEW 324 MG PO (21:39)
[2022-06-05 21:49] LABS: Absolute Lymphocyte Count 1.98 X10^3/uL (0.83-4.51); Absolute Neutrophil Count 2.8 X10^3/uL (2.0-7.7); Basophil# 0.02 X10^3/uL; Basophil% 0.4 % (0-1); Eosinophil# 0.09 X10^3/uL; Eosinophils% 1.7 % (0-5); Lymphocyte # 1.98 X10^3/ul (0.83-4.51); Lymphocyte % 37.2 % (19-41); Mean Corp Hgb Conc 32.4 g/dL (32-36); Mean Corpuscular Hgb 29.3 pg (27.0-32.0); Mean Corpuscular Volume 90.2 fL (81-99); Mean Platelet Vol. 11.7 fl (6.2-12.0); Monocyte# 0.46 X10^3/uL; Monocyte% 8.6 % (0-10); NRBC Flagged by Analyzer 0 % (0-5); Neutrophil # 2.75 X10^3/uL (2.7-7.7); Neutrophil % 51.7 % (47-70); Platelet Count 132 K/mm3 (150-450); RBC Distribution Width CV 12.9 % (11.6-14.6); RBC Distribution Width SD 42.6 fl (35.1-43.9); White Blood Count 5.3 K/mm3 (4.4-11.0)
--- NOTE | 2022-06-05 21:50 | RAD_ITS ---
INDICATION: chest pain EXAMINATION/TECHNIQUE: X-RAY - XR Chest 1 View COMPARISON: 10/05/2021 FINDINGS: LINES/DEVICES: None. LUNGS: Mild biapical pleural/parenchymal scarring again seen. No consolidation, edema or effusion. No pneumothorax. MEDIASTINUM AND CARDIOVASCULAR STRUCTURES: Cardiac silhouette not enlarged. Central airways and mediastinal contour are unremarkable. BONES AND SOFT TISSUES: Unremarkable. RAD/Chest 1 View (Portable) IMPRESSION: No acute cardiopulmonary disease. Electronically Signed: Keyur Vale MD at 22:22 EDT ,
[2022-06-05 22:08] LABS: Anion Gap 4 (5-15); BUN 9 mg/dL (7-18); BUN/Creat Ratio 10.3 RATIO (10-20); Calcium,Total 8.8 mg/dL (8.5-10.1); Chloride 107 mmol/L (98-107); Creatinine, Serum 0.88 mg/dL (0.55-1.02); EST Glomerular Filtration Rate 73 mL/min (>60); Est Glom Filt Rate - Afr Amer 88 mL/min (>60); Estimated Creatinine Clearance 71.99 ml/min; Glucose 97 mg/dL (74-106); Potassium 3.6 mmol/L (3.5-5.1); Sodium Level 138 mmol/L (136-145); Troponin-I HS (w/2H Reflex) 4 pg/mL (3.0-54.0)
[2022-06-05 23:42] VITALS: PULSE 68; RESP 18; O2SAT 97
[2022-06-05 23:45] LABS: Reflex Troponin-HS? (from REC) Y
[2022-06-06 00:02] LABS: Troponin-I HS 5 pg/mL (3.0-54.0)
[2022-06-06 00:29] VITALS: BP 124/65; PULSE 73; RESP 18; O2SAT 94
== END 2022-06-06 00:30 | disposition home or self-care (01) ==
PROVIDERS: Emergency Provider Emergency Medicine; PCP Family Medicine; Visit Provider Emergency Medicine
DX: R07.89 Other chest pain (principal); J44.9 Chronic obstructive pulmonary disease, unspecified; F31.9 Bipolar disorder, unspecified; D69.6 Thrombocytopenia, unspecified; F17.210 Nicotine dependence, cigarettes, uncomplicated; F43.10 Post-traumatic stress disorder, unspecified; F90.9 Attention-deficit hyperactivity disorder, unspecified type; Z79.899 Other long term (current) drug therapy; R06.02 Shortness of breath
CPT/HCPCS: 71045; 80048; 84484; 85025; 93005; 99285; A4216

== ENCOUNTER 2023-09-28 02:09 | Emergency (ER) | payer MEDICAID, SELFPAY ==
[2023-09-28 02:10] VITALS: BP 142/78; PULSE 96; RESP 18; TEMP 36; O2SAT 100; BMI 21.8
--- NOTE | 2023-09-28 02:24 | ED.VIS.FALL ---
HPI HPI - Fall History of Present Illness Chief Complaint: Fall Informant: patient Occured/Mechanism Occurred: Yesterday Mechanism/Context: Yes same level fall and Yes trip Usually ambulates: Without assistance Pain/Injury Location: Left ribs Pain Location: chest Quality of Pain: Stabbing and - (Pressure) Worsened by: Movement, lifting Relieved by: Remaining still Associated Symptoms Associated Symptoms: Negative for Parasthesias, Weakness, Loss of function, Inability to ambulate, Loss of consciousness or Amnesia Narrative Narrative: Patient presents with left rib pain that began after a fall yesterday. Patient states she slipped and fell and landed on a trash can. Patient states her pain is over the left ribs. Patient describes it as a constant pressure but stabbing with certain movements. Patient denies any shortness of breath. Patient denies any nausea or vomiting. Patient denies any head injury or loss of consciousness. Patient denies any other injuries. Patient states her pain is worse with any lifting or movement. Patient states it is better when she remains still. [facility] Medical History ADHD Bipolar 1 disorder COPD (chronic obstructive pulmonary disease) PTSD (post-traumatic stress disorder) Home Medications estradiol 0.025 mg/24 hr semiweekly transdermal patch 1 ea TD [facility] 04/01/15 [History Last Taken 07/04/20] clonazepam 0.5 mg tablet (Klonopin) 0.5 mg PO BID 07/21/20 [History Last Taken Unknown] olanzapine 5 mg tablet (Zyprexa) 20 mg PO QHS 07/21/20 [History Last Taken Unknown] clonazepam 1 mg tablet 1 mg PO QHS 09/30/20 [History Last Taken Unknown] dextroamphetamine-amphetamine 20 mg tablet (Adderall) 20 mg PO TID 09/30/20 [History Last Taken Unknown] Allergy/AdvReac Type Severity Reaction Status Date / Time No Known Allergies Allergy Verified 09/28/23 02:13 Family History Other Breast cancer Pancreatic cancer Surgical History s/p ankle surgery s/p cyst removal S/P hernia repair S/P hysterectomy S/P laparoscopic surgery s/p right shoulder surgery S/P tonsillectomy S/P wisdom tooth extraction Social History Smoking Status: Current every day smoker tobacco type: cigarettes substance use type: marijuana ROS ROS ED Constitutional Constitutional ED: Denies chills or fever(s) Eyes Eyes: Denies blurry vision or change in vision ENT ENT ED: Denies rhinorrhea or sore throat Cardiovascular Cardiovascular: Reports chest pain; Denies palpitations Respiratory/Chest Respiratory/Chest: Denies cough or dyspnea Gastrointestinal Gastrointestinal: Denies nausea or vomiting Genitourinary Genitourinary ED: Denies dysuria or hematuria Musculoskeletal Musculoskeletal: Denies back pain or neck pain Integumentary Denies abscess or rash Neurologic Neurologic: Denies headache(s) or weakness Allergic/Immunologic Allergic/Immunologic ED: Denies mouth swelling or urticaria EXAM Physical Exam Const Vital Signs: 09/28/23 02:10 Temperature 96.8 F L Temperature Source Temporal Pulse Rate 96 Respiratory Rate 18 Blood Pressure 142/78 H Blood Pressure Mean 99 Pulse Ox 100 Oxygen Delivery Method Room Air Positive well nourished and well developed General Appearance ED: well developed and NAD HEENT Reports normocephalic atraumatic Neck full ROM and supple Chest Wall Chest Narrative: There is tenderness over the lateral left fourth, fifth, sixth, and seventh ribs. There is no bony crepitance or step-off noted. There is no subcutaneous emphysema noted. Resp normal respiratory effort and clear to auscultation bilaterally Cardio regular rate and regular rhythm GI non-tender and non-distended Palpation: soft Neuro oriented x3, CN's II-XII intact bilaterally, moves all extremities, no focal motor deficits and no sensory deficits noted Sensorium / Orientation: alert Motor Exam: strength 5/5 throughout Psych mental status grossly normal MDM MDM MDM Narrative Medical decision making narrative: Differential diagnosis includes rib fracture, pneumothorax, and chest wall contusion. X-rays of the left ribs and chest will be obtained to assess for rib fracture and pneumothorax. Radiography Diagnostic Testing: Clinical Impression(s) from Imaging Studies Ribs w/Chest X-Ray 09/28/23 02:40 IMPRESSION: No evidence of displaced rib fracture. Electronically Signed: Sunny Dupree MD at 3:19 EST , X-rays of the left ribs were obtained. There are 5 views. On my independent interpretation, there is no acute fracture. There is no pneumothorax. Radiologist also interpreted the x-rays and agrees. Discharge Plan Triage Chief Complaint: Fall ED Provider: Rufus Cannon Dx/Rx/DC Orders Clinical Impression: Contusion of rib on left side, Fall Instructions: ED Bruise, Rib Prescriptions: No Action clonazepam [Klonopin] 0.5 mg tablet 0.5 mg PO BID olanzapine [Zyprexa] 5 mg tablet 20 mg PO QHS estradiol 1 EACH patch semiweekly 1 ea TD [facility] Patient Comments: APPLY PACTCH 2X WEEK. clonazepam 1 MG tablet 1 mg PO QHS dextroamphetamine-amphetamine [Adderall] 20 MG tablet 20 mg PO TID Primary Care Provider: Steve Medina Referrals: Steve Medina MD [Primary Care Provider] - 5-7 Days Disposition Disposition: Home, Self Care
--- NOTE | 2023-09-28 02:40 | RAD_ITS ---
INDICATION: Trauma EXAMINATION/TECHNIQUE: X-RAY - XR Ribs Unilateral W/ PA Chest Min 3 Views COMPARISON: No relevant prior comparison study available FINDINGS: SOFT TISSUES: No soft tissue swelling or gas. BONES: No displaced fracture. No sclerotic or destructive changes observed. VISUALIZED LUNGS: Clear. No pneumothorax. RAD/Ribs Uni Min 3V w/PA Chest IMPRESSION: No evidence of displaced rib fracture. Electronically Signed: Sunny Dupree MD at 3:19 EST ,
[2023-09-28 03:31] VITALS: PULSE 93; RESP 18; O2SAT 100
== END 2023-09-28 03:32 | disposition home or self-care (01) ==
PROVIDERS: Emergency Provider Emergency Medicine; PCP Family Medicine; Visit Provider Emergency Medicine
DX: S20.212A Contusion of left front wall of thorax, initial encounter (principal); W01.198A Fall on same level from slipping, tripping and stumbling with subsequent striking against other object, initial encounter; F17.210 Nicotine dependence, cigarettes, uncomplicated
CPT/HCPCS: 71101; 99282

== ENCOUNTER 2024-02-07 14:39 | Emergency (ER) | payer MEDICAID, SELFPAY ==
[2024-02-07 14:40] VITALS: BP 143/91; PULSE 69; RESP 16; TEMP 36.3; O2SAT 100; BMI 20.2
--- NOTE | 2024-02-07 15:23 | EX.ED.DYSGE1 ---
HPI History of Present Illness Chief Complaint: Complaint Informant: patient Narrative Narrative: Increasing dysuria since yesterday. Mild upper back pain today. History of UTI 2 years ago. States typically treated with Bactrim and Pyridium. No nausea or vomiting. No abdominal pain. Prior similar symptoms: Yes PFSH PFSH Medical History ADHD Bipolar 1 disorder COPD (chronic obstructive pulmonary disease) PTSD (post-traumatic stress disorder) Home Medications estradiol 0.025 mg/24 hr semiweekly transdermal patch 1 ea TD [facility] 04/01/15 [History Last Taken 07/04/20] clonazepam 0.5 mg tablet (Klonopin) 0.5 mg PO BID 07/21/20 [History Last Taken Unknown] olanzapine 5 mg tablet (Zyprexa) 20 mg PO QHS 07/21/20 [History Last Taken Unknown] clonazepam 1 mg tablet 1 mg PO QHS 09/30/20 [History Last Taken Unknown] dextroamphetamine-amphetamine 20 mg tablet (Adderall) 20 mg PO TID 09/30/20 [History Last Taken Unknown] phenazopyridine 200 mg tablet (Pyridium) 200 mg PO TID #10 tabs 02/07/24 [Rx Last Taken Unknown] sulfamethoxazole 800 mg-trimethoprim 160 mg tablet 1 tab PO BID #14 TABLETS 02/07/24 [Rx Last Taken Unknown] Allergy/AdvReac Type Severity Reaction Status Date / Time No Known Allergies Allergy Verified 02/07/24 14:41 Family History Other Breast cancer Pancreatic cancer Surgical History s/p ankle surgery s/p cyst removal S/P hernia repair S/P hysterectomy S/P laparoscopic surgery s/p right shoulder surgery S/P tonsillectomy S/P wisdom tooth extraction Social History Smoking Status: Current every day smoker tobacco type: cigarettes substance use type: marijuana ROS ROS ED Constitutional Constitutional ED: Denies chills, fever(s) or sweats Eyes Eyes: Denies change in vision ENT ENT ED: Denies dysphagia or sore throat Cardiovascular Cardiovascular: Denies chest pain, leg edema, palpitations or racing heartbeat Respiratory/Chest Respiratory/Chest: Denies cough, dyspnea or dyspnea on exertion Gastrointestinal Gastrointestinal: Denies abdominal pain, diarrhea, nausea or vomiting Genitourinary Genitourinary ED: Reports dysuria; Denies hematuria or urinary frequency Musculoskeletal Musculoskeletal: Reports back pain; Denies extremity pain or neck pain Integumentary Denies rash or wounds Neurologic Neurologic: Denies headache(s), paresthesias or weakness EXAM Physical Exam Const Vital Signs: 02/07/24 14:40 Temperature 97.4 F L Temperature Source Temporal Pulse Rate 69 Respiratory Rate 16 Blood Pressure 143/91 H Blood Pressure Mean 108 Pulse Ox 100 Oxygen Delivery Method Room Air Positive well nourished and well developed General Appearance ED: well developed and NAD HEENT Reports moist mucous membranes normocephalic and atraumatic Eyes PERRL, EOMs intact bilaterally and conjunctivae normal General Eye ED: Yes normal appearance of both eyes Neck no lymphadenopathy and supple General: Negative for tenderness Chest Wall Chest: Negative for tenderness Resp normal respiratory effort and normal air movement Effort and Inspection: symmetric chest movement; Negative for respiratory distress Cardio regular rate, regular rhythm and no murmurs Peripheral Pulses: pulses 2+ throughout GI normal to inspection, nondistended, normoactive bowel sounds and non-tender Palpation: Negative for guarding or rebound tenderness present Back/Spine no CVA tenderness and no thoracic nor lumbar tenderness Extremity normal to inspection General Extremety ED: Negative for edema or tenderness General Extremity: Negative for edema Neuro oriented x3 and no sensory deficits noted Sensorium / Orientation: awake and alert Skin no rashes or lesions noted and no wounds MDM MDM MDM Narrative Medical decision making narrative: Interventions / MDM: Differential diagnosis: UTI Diagnosis considered but do not suspect: No clinical pyelonephritis, no clinical kidney stones My EKG interpretation: N/A Imaging independently reviewed and interpreted by myself: N/A External documents reviewed: N/A Test considered but not ordered:N/A ED course: Vital stable nontoxic. Patient reported dysuria with history UTIs. She urine sent for culture. She started on Bactrim Pyridium in the ED. Prescriptions to her pharmacy. Outpatient follow-up. All questions were answered. Re-evaluation: stable Disposition discussed with patient/family/significant other: Patient Case discussed with consulting clinician: N/A This note was generated with Dragon dictation software. It may contain incorrect words, spelling, and punctuation that were not noted in checking the note before signing. Discharge Plan Triage Chief Complaint: Complaint ED Provider: Osman Pandya Dx/Rx/DC Orders Clinical Impression: Dysuria, Urethritis Instructions: ED UTIs Women Prescriptions: New phenazopyridine [Pyridium] 200 mg tablet 200 mg PO TID Qty: 10 0RF sulfamethoxazole-trimethoprim [sulfamethoxazole-trimethoprim] 800-160 mg tablet 1 tab PO BID Qty: 14 0RF No Action clonazepam [Klonopin] 0.5 mg tablet 0.5 mg PO BID olanzapine [Zyprexa] 5 mg tablet 20 mg PO QHS estradiol 1 EACH patch semiweekly 1 ea TD [facility] Patient Comments: APPLY PACTCH 2X WEEK. clonazepam 1 MG tablet 1 mg PO QHS dextroamphetamine-amphetamine [Adderall] 20 MG tablet 20 mg PO TID Primary Care Provider: Steve Medina Referrals: Steve Medina MD [Primary Care Provider] - Disposition Disposition: Home, Self Care Discharge Date/Time: 02/07/24 15:38
[2024-02-07] MEDS: Smz/Tmp Ds Tablet 1 TABLET PO (15:25)
[2024-02-07] MEDS: Phenazopyridine 95 MG Tablet 190 MG PO (15:25)
== END 2024-02-07 15:38 | disposition home or self-care (01) ==
PROVIDERS: Emergency Provider Emergency Medicine; PCP Family Medicine; Visit Provider Emergency Medicine
DX: R30.0 Dysuria (principal); J44.9 Chronic obstructive pulmonary disease, unspecified; N34.2 Other urethritis; F17.210 Nicotine dependence, cigarettes, uncomplicated; F12.90 Cannabis use, unspecified, uncomplicated
CPT/HCPCS: 87086; 87088; 87186; 99283

== ENCOUNTER 2025-01-24 17:33 | Emergency (ER) | payer MEDICAID, SELFPAY ==
[2025-01-24 17:33] VITALS: BP 122/82; PULSE 97; RESP 16; TEMP 36.9; O2SAT 100; BMI 20.5
[2025-01-24] MEDS: Fluorescein 1 MG STRIP 1 STRIP LEFT EYE (18:04)
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
[2025-01-24] MEDS: Tetracaine 0.5% Ophthalmic Bottle 1 DRP LEFT EYE (18:05)
[2025-01-24] MEDS: Bacitracin/Polymin B Sulfate 3.5 GM OPTH.TUBE 1 APPLIC LEFT EYE (18:30)
== END 2025-01-24 18:36 | disposition home or self-care (01) ==
PROVIDERS: Emergency Provider Emergency Medicine; PCP Family Medicine; Visit Provider Emergency Medicine
DX: T15.82XA Foreign body in other and multiple parts of external eye, left eye, initial encounter (principal); J44.9 Chronic obstructive pulmonary disease, unspecified; F17.210 Nicotine dependence, cigarettes, uncomplicated; W44.8XXA Other foreign body entering into or through a natural orifice, initial encounter; Z97.3 Presence of spectacles and contact lenses
CPT/HCPCS: 65222; 99284